=== PATIENT | female | born 1985 | race African-American/Black ===

== ENCOUNTER 2021-01-22 09:42 | Emergency (ER) | payer MEDICAID ==
[~2021-01-22] VITALS: Ht 157.5 cm; Wt 104.0 kg
[2021-01-22 10:19] VITALS: BP 122/67
[2021-01-22 11:10] LABS: INFLUENZA A PATIENT NEGATIVE (NEGATIVE); INFLUENZA B PATIENT NEGATIVE (NEGATIVE)
--- NOTE | 2021-01-22 11:40 | RAD ---
INDICATION: Reason: cough / Spl. Instructions: / History: COMPARISON: None. FINDINGS: Single view of chest obtained. Relative opacity at the left greater than right lung base. Cardiac silhouette unremarkable. No gross osseous destructive lesion. IMPRESSION: * Focal opacity at the left greater than right lung base. This could be secondary to overlap of soft tissue structures as well as atelectasis but infiltrate at the left lung base is not excluded given this finding. Electronically signed by: Rudy Toribio MD (01/22/2021 11:38 AM) [id number]
[2021-01-22] MEDS ORDERED: GUAI5LIQ PO (12:13)
[2021-01-22] MEDS ORDERED: ALBU2.5V8 IH (12:13)
[2021-01-22] MEDS ORDERED: AMOX1TAB61 PO (12:13)
[2021-01-22] MEDS ORDERED: GUAI118L13 PO (12:17)
--- NOTE | 2021-01-22 12:19 | PHYS DOC ---
Past Medical History Additional Past Medical Histor: OSTEOARTHRITIS Past Surgical History: Other Additional Past Surgical Histo: ANKLE SURGERY General Adult EDM: Chief Complaint: FLU SYMPTOM HPI: HPI: Patient is a 35 year old female who presents to the ED today complaining of cough, body aches, nasal congestion, symptoms began on Tuesday after being ex posed to somebody with COVID-19. Patient reports a fever of 100 today and she took Tylenol. Denies any chest pain or shortness of breath. She states she was seen a couple days ago at another clinic and was given amoxicillin 500 mg for enlarged tonsils. Patient states she received her first Covid vaccine 3 weeks ago by [facility] and is due for the second one Review of Systems: Review of Systems: Constitutional: Reports fever Eyes: Denies change in visual acuity. [] HENT: Reports nasal congestion and enlarged tonsils, denies sore throat. [] Respiratory: Reports cough, denies shortness of breath. [] Cardiovascular: Denies chest pain or edema. [] GI: Denies abdominal pain, nausea, vomiting, bloody stools or diarrhea. [] : Denies dysuria. [] Musculoskeletal: Denies back pain or joint pain. [] Integument: Denies rash. [] Neurologic: Denies headache, focal weakness or sensory changes. [] Psychiatric: Denies depression or anxiety. [] Heart Score: C/O Chest Pain: N/A Risk Factors: Risk Factors: DM, Current or recent (<one month) smoker, HTN, HLP, family history of CAD, obesity. Risk Scores: Score 0 - 3: 2.5% MACE over next 6 weeks - Discharge Home Score 4 - 6: 20.3% MACE over next 6 weeks - Admit for Clinical Observation Score 7 - 10: 72.7% MACE over next 6 weeks - Early Invasive Strategies Allergies: Allergies: Allergies Coded Allergies Type Severity Reaction Last Updated Verified Pertussis Vaccines Allergy Intermediate 01/22/21 Yes Physical Exam: PE: Constitutional: Well developed, well nourished, no acute distress, non-toxic appearance. [] HENT: Normocephalic, atraumatic, bilateral external ears normal, oropharynx moist, no oral exudates, nose normal. [] Eyes: PERRLA, EOMI, conjunctiva normal, no discharge. [] Neck: Normal range of motion, no tenderness, supple, no stridor. [] Cardiovascular:Heart rate regular rhythm, no murmur [] Lungs & Thorax: Bilateral breath sounds clear to auscultation [] Abdomen: Bowel sounds normal, soft, no tenderness, no masses, no pulsatile masses. [] Skin: Warm, dry, no erythema, no rash. [] Back: No tenderness, no CVA tenderness. [] Extremities: No tenderness, no cyanosis, no clubbing, ROM intact, no edema. Reports RLEin immobilizer from surgery. Neurologic: Alert and oriented X 3, normal motor function, normal sensory function, no focal deficits noted. [] Psychologic: Affect normal, judgement normal, mood normal. [] Current Patient Data: Labs: Laboratory Tests Test 01/22/21 10:12 Influenza Type A Antigen Negative (NEGATIVE) Influenza Type B Antigen Negative (NEGATIVE) SARS-CoV-2 Antigen (Rapid) Negative (NEGATIVE) Vital Signs: Vital Signs Date Time Temp Pulse Resp B/P (MAP) Pulse Ox O2 Delivery O2 Flow Rate FiO2 01/22/21 10:19 98.7 94 16 122/67 98 Room Air 98.7 EKG: EKG: [] Radiology/Procedures: Radiology/Procedures: []PROCEDURE: CHEST AP ONLY INDICATION: Reason: cough / Spl. Instructions: / History: COMPARISON: None. FINDINGS: Single view of chest obtained. Relative opacity at the left greater than right lung base. Cardiac silhouette unremarkable. No gross osseous destructive lesion. IMPRESSION: * Focal opacity at the left greater than right lung base. This could be secondary to overlap of soft tissue structures as well as atelectasis but infiltrate at the left lung base is not excluded given this finding. Electronically signed by: Maria Isabel Toribio MD (01/22/2021 11:38 AM) DESKTOP- [id number] DICTATED and SIGNED BY: MARIA ISABEL TORIBIO MD DATE: 01/22/21 [id number] 0 Course & Med Decision Making: Course & Med Decision Making Pertinent Labs and Imaging studies reviewed. (See chart for details) This is a 35-year-old female patient presented to the ED today complaining of cough, nasal congestion, fever, symptoms began on Tuesday after being exposed to somebody with COVID-19. Negative influenza a and B, negative rapid Covid test. PCR Covid test pending. Chest x-ray could not exclude pneumonia. Patient was discharged on albumin today. Follow-up with PCP. Instructed to quarantine herself until the PCR test comes back Luna Disclaimer: Luna Disclaimer: This electronic medical record was generated, in whole or in part, using a voice recognition dictation system. Departure Departure Impression: Primary Impression: Person under investigation for COVID-19 Additional Impressions: Fever Qualified Codes: R50.9 - Fever, unspecified URI (upper respiratory infection) Qualified Codes: J06.9 - Acute upper respiratory infection, unspecified Left lower lobe pneumonia Qualified Codes: J18.9 - Pneumonia, unspecified organism Disposition: HOME / SELF CARE / HOMELESS Condition: STABLE Referrals: NO PCP (PCP) follow up with your doctor in 1 week Patient Instructions: Fever, Adult, Pneumonia, Adult, Upper Respiratory Infection, Adult, [id number] Additional Instructions: You were evaluated in the emergency room. Your chest x-ray could not exclude pneumonia. Please take the prescribed antibiotic until completed. You can stop taking the 500 mg of amoxicillin. Please take Tylenol or Motrin as needed for pain or fever. Please quarantine yourself until you get results from us for your Covid PCR test. Scripts Guaifenesin/Codeine Phosphate (GUAIFENESIN-CODEINE SYRUP) 118 Ml Liquid 5 ML PO Q6HRS, #80 ML Prov: ANAT GIBBS APRN 01/22/21 Albuterol Sulfate (PROAIR HFA INHALER) 8.5 Gm Hfa.aer.ad 2 PUFF IH PRN Q4-6HRS PRN for wheezing for 21 Days, #1 INHALER 0 Refills Prov: ANAT GIBBS APRN 01/22/21 Amoxicillin/Potassium Clav (AUGMENTIN 875-125 TABLET) 1 Each Tablet 1 TAB PO BID for 7 Days, #14 TAB 0 Refills Prov: ANAT GIBBS APRN 01/22/21 ANAT GIBBS APRN Jan 22, 2021 12:19
--- NOTE | 2021-01-22 19:06 | NUR ---
IP: Informed pt of negative covid test. Pt verbalized understanding.
== END 2021-01-22 12:44 | disposition home or self-care (01) ==
LOC: ER 09:42
DX: J18.9 Pneumonia, unspecified organism (principal); Z20.822 Contact with and (suspected) exposure to COVID-19; J06.9 Acute upper respiratory infection, unspecified; Z88.7 Allergy status to serum and vaccine
CPT/HCPCS: 71045; 87426; 87804; 99284; U0003; U0005

== ENCOUNTER 2021-04-22 08:15 | Emergency (ER) | payer MEDICAID ==
[~2021-04-22] VITALS: Ht 157.5 cm; Wt 109.0 kg
[~2021-04-22 08:15] MED LIST: ALBU2.5V8 IH; AMOX1TAB61 PO; GUAI118L13 PO; GUAI5LIQ PO
--- NOTE | 2021-04-22 08:55 | PHYS DOC ---
Past Medical History Additional Past Medical Histor: OSTEOARTHRITIS Past Surgical History: , Other Additional Past Surgical Histo: ANKLE SURGERY, CARPEL TUNNEL, LEFT NECK LYMPH NODE Smoking Status: Never Smoker Alcohol Use: Occasionally General Adult EDM: Chief Complaint: lower abdominal pain, pelvic pain HPI: HPI: Patient is a 35 year old female who present to ER for evaluation of pelvic pain, low abdominal pain for 1 week. Patient says she had not have a period for 40 days. Patient went to [facility], was seen by her financial controller over there 3 days ago, tested negative for STD, tested negative for , did a Pap smear and did some biopsy and results are pending at this time. Patient said the pain has become more severe the last 2 days, she has taken ibuprofen and Tylenol at home but did not feel any better so she came here for evaluation. Review of Systems: Review of Systems: Constitutional: Denies fever or chills. [] Eyes: Denies change in visual acuity. [] HENT: Denies nasal congestion or sore throat. [] Respiratory: Denies cough or shortness of breath. [] Cardiovascular: Denies chest pain or edema. [] GI: Denies abdominal pain, nausea, vomiting, bloody stools or diarrhea. [] : Denies dysuria. [] Musculoskeletal: Denies back pain or joint pain. [] Integument: Denies rash. [] Neurologic: Denies headache, focal weakness or sensory changes. [] Endocrine: Denies polyuria or polydipsia. [] Lymphatic: Denies swollen glands. [] Psychiatric: Denies depression or anxiety. [] Heart Score: C/O Chest Pain: N/A Risk Factors: Risk Factors: DM, Current or recent (<one month) smoker, HTN, HLP, family history of CAD, obesity. Risk Scores: Score 0 - 3: 2.5% MACE over next 6 weeks - Discharge Home Score 4 - 6: 20.3% MACE over next 6 weeks - Admit for Clinical Observation Score 7 - 10: 72.7% MACE over next 6 weeks - Early Invasive Strategies Allergies: Allergies: Allergies Coded Allergies Type Severity Reaction Last Updated Verified Pertussis Vaccines Allergy Intermediate 01/22/21 Yes Physical Exam: PE: Constitutional: Well developed, well nourished, no acute distress, non-toxic appearance. [] HENT: Normocephalic, atraumatic, bilateral external ears normal, oropharynx moist, no oral exudates, nose normal. [] Eyes: PERRLA, EOMI, conjunctiva normal, no discharge. [] Neck: Normal range of motion, no tenderness, supple, no stridor. [] Cardiovascular:Heart rate regular rhythm, no murmur [] Lungs & Thorax: Bilateral breath sounds clear to auscultation [] Abdomen: Bowel sounds normal, soft,There is tenderness to palpation lower abdomen area, no masses, no pulsatile masses. [] Skin: Warm, dry, no erythema, no rash. [] Back: No tenderness, no CVA tenderness. [] Extremities: No tenderness, no cyanosis, no clubbing, ROM intact, no edema. [] Neurologic: Alert and oriented X 3, normal motor function, normal sensory function, no focal deficits noted. [] Psychologic: Affect normal, judgement normal, mood normal. [] Current Patient Data: Labs: Laboratory Tests Test 04/22/21 08:31 POC Urine HCG, Qualitative Hcg negative (Negative) Vital Signs: Vital Signs Date Time Temp Pulse Resp B/P (MAP) Pulse Ox O2 Delivery O2 Flow Rate FiO2 04/22/21 08:18 98.2 81 18 134/69 (90) 99 Room Air 98.2 EKG: EKG: [] Radiology/Procedures: Radiology/Procedures: [][facility] [address] [place] [address] IMAGING REPORT Signed PATIENT: MEG RAMOS ACCOUNT: [id number] : 1985 LOCATION: ER AGE: 35 SEX: F EXAM STATUS: REG ER ORD. PHYSICIAN: CHRISTA NAYLOR DO REASON: LOWER ABDOMINAL PAIN FOR 1 WEEK PROCEDURE: CT ABD PELV W/ IV CONTRST ONLY EXAM: Abdomen and pelvis CT with intravenous contrast. HISTORY: Pain. TECHNIQUE: Computed tomographic images of the abdomen and pelvis were obtained following the administration of intravenous contrast. Multiplanar reformatting was performed. *One or more of the following individualized dose reduction techniques were utilized for this examination: 1. Automated exposure control. 2. Adjustment of the mA and/or kV according to patient size. 3. Use of iterative reconstruction technique. COMPARISON: None. FINDINGS: Evaluation of the lower thorax is unremarkable. No hepatic lesion is seen. The gallbladder, pancreas, spleen and adrenal glands are unremarkable. There is no hydronephrosis or suspicious renal lesion. There is no appendicitis. There is no bowel obstruction. There is no abnormal bowel wall thickening. The bladder is unremarkable. There is a 3.3 cm left ovarian cyst. The aorta is norm al in caliber. There is no lymphadenopathy. There is no acute or suspicious osseous finding. IMPRESSION: 1. 3.3 cm left ovarian cyst. 2. Otherwise, no acute abdominal or pelvic finding. Electronically signed by: Shirley Lezama MD (04/22/2021 11:43 AM) [id number] DICTATED and SIGNED BY: SHIRLEY LEZAMA MD DATE: 04/22/21 [id number] [facility] [address] [place] [address] IMAGING REPORT Signed PATIENT: MEG RAMOS ACCOUNT: [id number] : 1985 LOCATION: ER AGE: 35 SEX: F EXAM STATUS: REG ER ORD. PHYSICIAN: CHRISTA NAYLOR DO REASON: pelvis pain; Abnormal CT showed 3.3 cm LT Ovarian cyst PROCEDURE: PELVIS COMPLETE EXAM: Pelvic sonogram. HISTORY: Left pelvic pain. TECHNIQUE: Transabdominal sonographic imaging of the pelvis was performed. COMPARISON: CT obtained on the same date. FINDINGS: The uterus measures 12.4 x 5.2 x 4.5 cm. The endometrial stripe measures 3.6 mm in thickness. There is a 1.7 cm fibroid within the superior uterine fundus. There is a 3.4 cm left ovarian cyst. There is normal blood flow within both ovaries. There is no pelvic free fluid. IMPRESSION: 1. 3.4 cm left ovarian cyst. 2. Small uterine fibroid. Electronically signed by: Shirley Lezama MD (04/22/2021 12:42 PM) [id number] DICTATED and SIGNED BY: SHIRLEY LEZAMA MD DATE: 04/22/21 [id number] 0 Course & Med Decision Making: Course & Med Decision Making Pertinent Labs and Imaging studies reviewed. (See chart for details) Patient is a is a 35-year-old female who present to ER due to pelvic pain, ultrasound of her pelvis and CT scan of the abdomen pelvis showed she had a 3.4 cm ovarian cyst on the left side, no evidence of torsion. Patient was given med ication in ER, she feels better. Patient will be discharged home. Patient will need to follow-up with HEALTH CARE AIDE doctor for outpatient reevaluation. Luna Disclaimer: Luna Disclaimer: This electronic medical record was generated, in whole or in part, using a voice recognition dictation system. Departure Departure Impression: Primary Impression: Ovarian cyst Disposition: HOME / SELF CARE / HOMELESS Condition: STABLE Referrals: NO PCP (PCP) LICO BASSETT MD Please call this HEALTH CARE AIDE DOCTOR FOR FOLLOW UP NEXT WEEK Patient Instructions: Ovarian Cyst Additional Instructions: Thank you for visiting our Emergency Department. We appreciate you trusting us with your care. If any additional problems come up don't hesitate to return to visit us. Please follow up with your primary care provider so they can plan additional care if needed and know about the problem that you had. If symptoms worsen come back to the Emergency Department. Any concerning symptoms that start such as chest pain, shortness of air, weakness or numbness on one side of the body, running high fevers or any other concerning symptoms return to the ER. Scripts Naproxen Sodium (ANAPROX DS) 550 Mg Tablet 1 TAB PO BID PRN for PAIN for 15 Days, #30 TAB 0 Refills Prov: CHRISTA NAYLOR DO 04/22/21 Tramadol Hcl (TRAMADOL HCL) 50 Mg Tablet 50 MG PO Q6HRS PRN for PAIN, #15 TAB Prov: CHRISTA NAYLOR DO 04/22/21 CHRISTA NAYLOR DO Apr 22, 2021 08:55
[2021-04-22 09:18] LABS: BILIRUBIN,URINE NEGATIVE (NEG); CLARITY,URINE CLEAR; COLOR,URINE YELLOW; NITRITE,URINE NEGATIVE (NEG); PH,URINE 6.5 (<5.0-8.0); PROTEIN,URINE NEGATIVE (NEG-TRACE)
[2021-04-22] MEDS ORDERED: KETOROLAC 30 MG/ML VIAL. IVP ONE (09:30)
[2021-04-22] MEDS ORDERED: ONDANSETRON PF 4 MG/2 ML VIAL. IVP ONE (09:30)
[2021-04-22 09:38] LABS: BACTERIA,URINE 0 /HPF (0-FEW); RBC,URINE 0 /HPF (0-2); WBC,URINE 0 /HPF (0-4)
[2021-04-22 10:44] LABS: BASO # 0.1 x10^3/uL (0.0-0.2); BASO % 1 % (0-3); EOS # 0.1 x10^3/uL (0.0-0.7); EOS % 1 % (0-3); HEMATOCRIT 34.1 % (36.0-47.0); HEMOGLOBIN 11.7 g/dL (12.0-15.5); LYMPH # 4.6 x10^3/uL (1.0-4.8); LYMPH % 52 % (24-48); MEAN CORPUSCULAR HEMOGLOBIN 29 pg (25-35); MEAN CORPUSCULAR HGB CONC 34 g/dL (31-37); MEAN CORPUSCULAR VOLUME 83 fL (79-100); MONO # 0.5 x10^3/uL (0.0-1.1); MONO % 5 % (0-9); NEUT # 3.6 x10^3/uL (1.8-7.7); NEUT % 40 % (31-73); PLATELET COUNT 425 x10^3/uL (140-400); RED CELL DISTRIBUTION WIDTH 14.1 % (11.5-14.5); WHITE BLOOD COUNT 8.9 x10^3/uL (4.0-11.0)
[2021-04-22 11:06] LABS: CALCIUM 8.7 mg/dL (8.5-10.1); CREATININE 0.7 mg/dL (0.6-1.0); GFR 115.9; POTASSIUM 4.3 mmol/L (3.5-5.1)
[2021-04-22 11:09] LABS: ALBUMIN 2.8 g/dL (3.4-5.0); ALBUMIN/GLOBULIN RATIO 0.6 (1.0-1.7); TOTAL BILIRUBIN 0.2 mg/dL (0.2-1.0); TOTAL PROTEIN 7.6 g/dL (6.4-8.2)
[2021-04-22] MEDS ORDERED: CONTRAST GIVEN. MC PRN (11:15)
[2021-04-22] MEDS ORDERED: IOHEXOL 300 MG/ML 100ML VIAL. IV ONE (11:15)
--- NOTE | 2021-04-22 11:45 | RAD ---
EXAM: Abdomen and pelvis CT with intravenous contrast. HISTORY: Pain. TECHNIQUE: Computed tomographic images of the abdomen and pelvis were obtained following the administ ration of intravenous contrast. Multiplanar reformatting was performed. *One or more of the following individualized dose reduction techniques were utilized for this examina tion: 1. Automated exposure control. 2. Adjustment of the mA and/or kV according to patient size. 3. Use of iterative reconstruction technique. COMPARISON: None. FINDINGS: Evaluation of the lower thorax is unremarkable. No hepatic lesion is seen. The gallbladder, pancreas, spleen and adrenal glands are unremarkable. There is no hydronephrosis or suspicious renal lesion. There is no appendicitis. There is no bowel obstruction. There is no abnormal bowel wall thi ckening. The bladder is unremarkable. There is a 3.3 cm left ovarian cyst. The aorta is normal in andrew iber. There is no lymphadenopathy. There is no acute or suspicious osseous finding. IMPRESSION: 1. 3.3 cm left ovarian cyst. 2. Otherwise, no acute abdominal or pelvic finding. Electronically signed by: Shirley Anand MD (04/22/2021 11:43 AM) [id number]
--- NOTE | 2021-04-22 12:44 | RAD ---
EXAM: Pelvic sonogram. HISTORY: Left pelvic pain. TECHNIQUE: Transabdominal sonographic imaging of the pelvis was performed. COMPARISON: CT obtained on the same date. FINDINGS: The uterus measures 12.4 x 5.2 x 4.5 cm. The endometrial stripe measures 3.6 mm in thicknes s. There is a 1.7 cm fibroid within the superior uterine fundus. There is a 3.4 cm left ovarian cyst. There is normal blood flow within both ovaries. There is no pelvic free fluid. IMPRESSION: 1. 3.4 cm left ovarian cyst. 2. Small uterine fibroid. Electronically signed by: Shirley Anand MD (04/22/2021 12:42 PM) [id number]
[2021-04-22] MEDS ORDERED: NAPR-682 PO (12:55)
[2021-04-22] MEDS ORDERED: TRAM50TA PO (12:55)
[2021-04-22 13:00] VITALS: BP 106/56
== END 2021-04-22 13:20 | disposition home or self-care (01) ==
LOC: ER 08:15
DX: N83.202 Unspecified ovarian cyst, left side (principal); D25.9 Leiomyoma of uterus, unspecified
CPT/HCPCS: 36415; 74177; 76856; 80053; 81001; 81025; 85025; 96374; 96375; 99285; J1885; J2405; Q9967